=== PATIENT | male | born 1985 | race Caucasian/White ===

== ENCOUNTER → 2017-09-23 | Outpatient (REF) | payer OTHER ==
[2017-09-23 10:42] LABS: SEMEN APPEARANCE YELLOW (OPAQUE); SEMEN VISCOSITY VISCOUS (LIQUID); SEMEN VOLUME 4.5 ml (4.0-5.0); SEMEN pH 8.5 (7.0-8.0)
[2017-09-23 10:43] LABS: % NORMAL FORMS 12 % (>=4); IMMOTILITY 45 %; NON PROGRESSIVE MOTILITY (c) 6 %; PROGRESSIVE MOTILITY (a) 49 % (>=32); SPERM CONCENTRATION 86.3 M/ml (>=15.0); SPERM# 388.2 M/Ejac (>=39); TOTAL FUNCTIONAL 49.9 M/Ejac.; TOTAL MOTILITY 55 % (>=40); TOTAL PROGRESSIVE SPERM 188.5 M/Ejac.; WBC CONCENTRATION <=1 M/ml (<=1 M/ml)
== END ==
LOC: M LAB REF 10:23
DX: N46.8 Other male infertility (principal)
CPT/HCPCS: 89320